=== PATIENT | male | born 1955 | race African-American/Black ===

== ENCOUNTER 2020-01-28 13:59 | Emergency (ER) | payer OTHER ==
[~2020-01-28] VITALS: Ht 162.6 cm; Wt 77.2 kg
[2020-01-28 14:15] VITALS: BP 155/87
[2020-01-28] MEDS ORDERED: FLUORESCEIN OPHTH TEST STRIP. OD ONE (15:45)
[2020-01-28] MEDS ORDERED: TETRACAINE 0.5% OPHTH SOLUTION 4ML BOTTLE. OD ONE (15:45)
[2020-01-28] MEDS ORDERED: ERYTHROMYCIN 0.5% OPHTH OINTMENT 1GM TUBE. OD ONE (15:45)
[2020-01-28] MEDS ORDERED: ERYT1OIN6 OD (16:57)
[2020-01-28] MEDS ORDERED: HYDR-2761 PO (16:57)
--- NOTE | 2020-01-28 16:58 | PHYS DOC ---
Past Medical History Past Medical History: Depression, Hypertension, Stroke Additional Past Medical Histor: mood disorder Past Surgical History: No Surgical History Smoking Status: Current Every Day Smoker Additional Information: pt reports smoking 2 cigarettes a day Alcohol Use: None General Adult EDM: Chief Complaint: EYE PROBLEMS HPI: HPI: Patient is a 64 year old male who presents to the emergency department via POV after being evaluated at [facility] in [facility] for a work-related injury. Patient states that he was working on January 24, 2020 operating a weed eater when a rock flew back and hit him in the right side of his head. Patient states he was wearing safety goggles but they were knocked off and broken and he felt like the rock hit his eye. Patient states that his vision has seemed blurry and hazy since the injury. Patient states that he is seeing a black dot in his right peripheral vision vision since the injury, the black dot does not float around and tracks with his vision never moving. He denies seeing any flashing lights or weblike patterns in the affected eye. He denies any tearing, drainage, or crusting of the right eye. He currently rates the pain as a 9/10 on the pain scale, describes it as an intermittent pressure, the pain does not radiate. . Review of Systems: Review of Systems: Constitutional: Denies fever or chills. [] Eyes: See HPI HENT: Denies nasal congestion or sore throat. [] Respiratory: Denies cough or shortness of breath. [] GI: Denies nausea, or vomiting Integument: Denies rash. [] Neurologic: Denies headache, see HPI Psychiatric: Denies depression or anxiety. [] Heart Score: Risk Factors: Risk Factors: DM, Current or recent (<one month) smoker, HTN, HLP, family history of CAD, obesity. Risk Scores: Score 0 - 3: 2.5% MACE over next 6 weeks - Discharge Home Score 4 - 6: 20.3% MACE over next 6 weeks - Admit for Clinical Observation Score 7 - 10: 72.7% MACE over next 6 weeks - Early Invasive Strategies Current Medications: Current Medications Medications (Trade) Dose Ordered Sig/Renée Start Time Stop Time Status Last Admin Dose Admin Erythromycin (Romycin) 0.5 inch 1X ONCE 01/28/20 15:45 01/28/20 15:46 DC 01/28/20 16:01 0.5 INCH Fluorescein Sodium (Ful-Cesilia) 1 strip 1X ONCE 01/28/20 15:45 01/28/20 15:46 DC 01/28/20 16:01 1 STRIP Tetracaine HCl (Tetracaine) 1 drop 1X ONCE 01/28/20 15:45 01/28/20 15:46 DC 01/28/20 16:01 1 DROP Allergies: Allergies: Allergies Coded Allergies Type Severity Reaction Last Updated Verified codeine Adverse Reaction Intermediate 01/28/20 Yes Physical Exam: PE: Constitutional: Well developed, well nourished, no acute distress, non-toxic appearance. [] HENT: Normocephalic, atraumatic, bilateral external ears normal, oropharynx moist, no oral exudates, nose normal. [] Eyes: PERRLA, EOMI, cataract present in L eye, R eye lateal conjunctiva injected, L eye conjunctiva normal, no discharge; R orbit non-tender [] Neck: Normal range of motion, no stridor. [] Cardiovascular:Heart rate regular rhythm Lungs & Thorax: Respirations even and unlabored, no retractions, no respiratory distress Skin: Warm, dry, no erythema, no rash. [] Extremities: No cyanosis, ROM intact, no edema. [] Neurologic: Alert and oriented X 3, normal motor function, normal sensory function, no focal deficits noted. [] Psychologic: Affect normal, judgement normal, mood normal. [] Current Patient Data: Vital Signs: Vital Signs Date Time Temp Pulse Resp B/P (MAP) Pulse Ox O2 Delivery O2 Flow Rate FiO2 01/28/20 14:15 97.5 56 18 155/87 (109) 98 Room Air 97.5 EKG: EKG: [] Radiology/Procedures: Radiology/Procedures: Using tetracaine and fluroscein the patient's eye was examined under Wood's lamp and an area of uptake at approximately 9:00 over the right lateral conjunctiva was noted. There was no visible FB, rust ring, or hyphema. Intraocular pressures measured with the tonopen were 25 at 10 in the right eye. Patient's ocular symptoms have stabilized while they have been evaluated in the department and are appropriate for outpatient work up. No evidence of ruptured globe, retinal detachment, acute angle closure glaucoma, or deep space infection. Plan for 24 hour ophthalmologic [facility] Course & Med Decision Making: Course & Med Decision Making Pertinent Labs and Imaging studies reviewed. (See chart for details) [id number] with Dr. Jeff television news producer rehabilitation technician, per Dr. Jeff patient needs treatment for the conjunctival abrasion. He recommends prescription of erythromycin ointment and pain medication. Patient needs to follow-up with an garbage man or his work comp early next week for reevaluation. Informed the patient that his vision is expected to be blurry that he needs to return to the emergency department if he were to see right flashes of light or lose part of his vision. Patient was given an initial dose of erythromycin eye ointment in the emergency department. He reported feeling much better after the ointment was administered. Prescriptions were written for erythromycin eye ointment and hydrocodone. Patient verbalized an understanding of home care, medications, follow-up, and return to ED instructions and was in agreement with the plan of care. [] Dragon Disclaimer: Dragon Disclaimer: This electronic medical record was generated, in whole or in part, using a voice recognition dictation system. Departure Departure Impression: Primary Impression: Right eye injury Qualified Codes: S05.91XA - Unspecified injury of right eye and orbit, initial encounter Additional Impressions: Abrasion of conjunctiva, right Qualified Codes: S05.01XA - Injury of conjunctiva and corneal abrasion without foreign body, right eye, initial encounter Blurry vision, right eye Disposition: HOME, SELF-CARE Condition: STABLE Referrals: UNKNOWN PCP NAME (PCP) Patient Instructions: Eye - Corneal Abrasion, [id number] Additional Instructions: Fill the prescriptions and use them as directed. You need to call your human resources department and tell them that you need to follow-up with an eye doctor that is contracted through your employer for a repeat eye evaluation early next week. The television news producer on-call for [facility], Dr. Jeff, is not contracted with your work comp insurance. Return to the emergency department if you start to have vision changes including: Loss of vision, seeing floaters, flashes of light, or cobwebs. Scripts Hydrocodone Bit/Acetaminophen (HYDROCODONE-APAP 5-325 ) 1 Tab Tablet 1 TAB PO PRN Q6HRS PRN for PAIN for 3 Days, #12 TAB 0 Refills Prov: RASHIDA REDMAN APRN 01/28/20 Erythromycin Base (Erythromycin) 1 Gm Oint...g. 0.5 INCH OD QID for 5 Days, #1 TUBE 0 Refills Prov: RASHIDA REDMAN APRN 01/28/20 Justicifation of Admission Dx: Justifications for Admission: Justification of Admission Dx: N/A RASHIDA REDMAN APRN Jan 28, 2020 16:58
== END 2020-01-28 17:40 | disposition home or self-care (01) ==
LOC: ER 13:59
DX: S05.01XA Injury of conjunctiva and corneal abrasion without foreign body, right eye, initial encounter (principal); H53.8 Other visual disturbances; I25.2 Old myocardial infarction; I10 Essential (primary) hypertension; F32.9 Major depressive disorder, single episode, unspecified; F17.210 Nicotine dependence, cigarettes, uncomplicated; Z88.5 Allergy status to narcotic agent; W22.8XXA Striking against or struck by other objects, initial encounter; Y93.89 Activity, other specified; Y92.89 Other specified places as the place of occurrence of the external cause; Y99.0 Civilian activity done for income or pay
CPT/HCPCS: 99283

== ENCOUNTER → 2020-02-02 | Outpatient (CLI) | payer OTHER ==
[2020-01-28 14:15] VITALS: BP 155/87
[~2020-02-02] MED LIST: ERYT1OIN6 OD; HYDR-2761 PO; IOHEXOL 300 MG/ML 100ML VIAL. IV ONE
--- NOTE | 2020-02-02 10:12 | KCIC ---
Examination: CT ORBITS W/CONTRAST History: Reason: INJURY TO RIGHT EYE ON 01/24/20, HIT IN THE EYE WITH ROCK / Spl. Instructions: / History: Comparison/Correlation: None Findings: Axial images of the orbits were obtained following IV contrast. Sagittal and coronal reformatted images were provided. The globes and optic nerves are unremarkable. Extra ocular muscles are unremarkable. There is no periorbital soft tissue swelling. No abnormal enhancement. No loculated collections. Posterior fossa is unremarkable. Moderate-sized right remigio bullosa is present. Partial opacification of the maxillary sinus ostium is noted. Partial opacification right sphenoid sinus is present. No fluid levels within the paranasal sinuses. There is no fracture identified. The patient is partially edentulous. Absence of multiple crowns noted. Dental caries noted. Impression: No depressed fracture or soft tissue swelling. No acute inflammatory findings. Minimal chronic paranasal sinusitis. Electronically signed by: Rupert Helton MD (02/02/2020 10:08 AM) [id number]
== END | disposition home or self-care (01) ==
LOC: KCIC 08:50
DX: S05.01XA Injury of conjunctiva and corneal abrasion without foreign body, right eye, initial encounter (principal); X58.XXXA Exposure to other specified factors, initial encounter; Y93.89 Activity, other specified; Y92.89 Other specified places as the place of occurrence of the external cause; Y99.8 Other external cause status; J32.8 Other chronic sinusitis
CPT/HCPCS: 70481; 82565; Q9967